=== PATIENT | male | born 1950 | race American Indian/Alaskan Native ===

== ENCOUNTER 2023-08-11 12:41 | Emergency (ER) | payer MEDICARE, OTHER ==
[~2023-08-11] VITALS: Ht 170.2 cm; Wt 72.6 kg
[2023-08-11 12:51] VITALS: BP_SYST 98; PULSE 77; RESP 20; TEMP 98.5; O2SAT 98
[2023-08-11 13:34] LABS: BASOPHILS % (AUTO) 0.2 % (0.0-2.0); EOSINOPHILS # (AUTO) 0.1 K/uL (0.0-0.4); EOSINOPHILS % (AUTO) 2.1 % (0.0-4.0); HEMATOCRIT 27.5 % (36-54); HEMOGLOBIN 9.1 g/dL (14.0-18.0); LYMPHOCYTES # (AUTO) 0.5 K/uL (1.0-5.5); LYMPHOCYTES % (AUTO) 12.9 % (20.5-51.5); MEAN CORPUSCULAR HEMOGLOBIN 28 pg (27-31); MEAN CORPUSCULAR HGB CONC 33 % (32-36); MEAN CORPUSCULAR VOLUME 83 fL (79.0-98.0); MONOCYTES # (AUTO) 0.4 K/uL (0.0-1.0); MONOCYTES % (AUTO) 9.4 % (1.7-9.3); NEUTROPHILS # (AUTO) 2.8 K/uL (1.8-7.7); NEUTROPHILS % (AUTO) 75.4 % (40.0-70.0); PLATELET COUNT (AUTO) 79 K/uL (130-430); RED BLOOD CELL COUNT(AUTO) 3.31 MIL/uL (4.2-6.2); RED CELL DISTRIBUTION WIDTH 17.5 % (9.0-15.0); WHITE BLOOD COUNT (AUTO) 3.8 K/uL (4.8-10.8)
[2023-08-11 13:44] LABS: INR 1.4 (0.80-1.20); PROTHROMBIN TIME 13.8 SECS (9.5-12.5)
[2023-08-11 13:48] LABS: ALBUMIN 2.8 g/dL (3.4-4.8); BILIRUBIN,DIRECT 0.3 mg/dL (0.0-0.3); CALCIUM 9.2 mg/dL (8.4-11.0); CREATININE 1.16 mg/dL (0.55-1.30); TOTAL BILIRUBIN 0.9 mg/dL (0.0-1.0); TOTAL PROTEIN, SERUM 8.8 g/dL (6.4-8.3)
[2023-08-11] MEDS: HYDROcodone/ACETAMIN 5-325 MG TAB (NORCO/ VICODIN) PO ONE (15:25)
[2023-08-11] MEDS: NACL 0.9% 1,000 ML IV ONE (16:25)
[2023-08-11] MEDS: MORPHINE 2 MG/ML INJ. SYRINGE IVP ONE (16:26)
[2023-08-11] MEDS ORDERED: HYDR-3927 PO (16:37)
[2023-08-11] MEDS ORDERED: HYDR-3917 PO (16:39)
[2023-08-11 19:27] VITALS: BP_SYST 105; PULSE 74; RESP 18; TEMP 97.9; O2SAT 96
== END 2023-08-11 16:50 | disposition home or self-care (01) ==
LOC: SED 12:41
DX: R10.11 Right upper quadrant pain (principal); M25.561 Pain in right knee; M54.2 Cervicalgia; M79.661 Pain in right lower leg; R51.9 Headache, unspecified; Z85.9 Personal history of malignant neoplasm, unspecified
CPT/HCPCS: 99285; 70450; 96374; 93971; 96361; 80076; 80048; 82140; 85025; 85610; 85730; 36415; 73564; 70490; 71250; 74176; J2270; J7030